=== PATIENT | female | born 1940 | race Caucasian/White ===

== ENCOUNTER 2021-10-07 13:25 | Inpatient (IN) | payer MEDICARE, OTHER ==
[~2021-10-07] VITALS: Ht 167.6 cm; Wt 127.0 kg
[~2021-10-07 13:25] MED LIST: LEVOTHYROXINE88 MCG PO; LISINOPRIL20 MG PO; VIBRAMYCIN TAB100 MG PO; VYTORIN 10-201 EACH PO
[2021-10-07 14:01] LABS: BASOPHILS % 0.3 % (0.0-1.0); EOSINOPHILS # (AUTO) 0.2 (0.0-0.4); EOSINOPHILS % 2.6 % (0.0-6.0); HEMATOCRIT 42.4 % (34.2-44.1); HEMOGLOBIN 13.7 g/dL (12.0-16.0); LYMPHOCYTES # (AUTO) 1.4 (1.0-3.2); LYMPHOCYTES % 15.4 % (18.0-39.1); MEAN CORPUSCULAR HEMOGLOBIN 30.6 pg (28-32); MEAN CORPUSCULAR HGB CONC 32.3 g/dL (31-35); MEAN CORPUSCULAR VOLUME 94.6 fL (81-99); MONOCYTES # (AUTO) 1.3 (0.2-0.8); MONOCYTES % 14.4 % (4.4-11.3); NEUTROPHILS # (AUTO) 5.9 (2.1-6.9); PLATELET COUNT 163 x10e3/uL (140-360); RED BLOOD COUNT 4.48 x10e6/uL (3.6-5.1); RED CELL DISTRIBUTION WIDTH 14.4 % (11.7-14.4)
[2021-10-07 14:15] LABS: ALBUMIN 3.7 g/dL (3.5-5.0); ALBUMIN/GLOBULIN RATIO 0.9 (0.8-2.0); ANION GAP 15.8 mmol/L (8-16); CALCIUM 8.9 mg/dL (8.4-10.2); CREATININE, SERUM 0.8 mg/dL (0.57-1.11); POTASSIUM 4.8 mmol/L (3.5-5.1)
[2021-10-07] MEDS: PIPERACILLIN/TAZOBACTAM 3.375 GM in SODIUM CHLORIDE 0.9% 50ML 50 ML IV SCH ×2 (14:15→21:55)
[2021-10-07] MEDS: Vancomycin IV 1 GM in SODIUM CHLORIDE 0.9% 250ML 250 ML IV SCH (14:15)
[2021-10-07] MEDS ORDERED: ONDANSETRON HCL INJ 2MG/ML 2ML 2 MG/ML VIAL IV PRN ×2 (16:15→18:30)
[2021-10-07 17:10] VITALS: BP 168/75
[2021-10-07 17:45] VITALS: BP 168/75
[2021-10-07] MEDS ORDERED: ALBUTEROL1.25 MG/3 NEB (18:21)
[2021-10-07] MEDS ORDERED: HYDROCODONE/APAP 5MG-325MG TAB PO PRN (18:30)
[2021-10-07] MEDS ORDERED: HYDRALAZINE HCL 20 MG/ML VIAL IV PRN (18:30)
[2021-10-07] MEDS ORDERED: ALBUTEROL SULF 0.083% NEB SOLN 3 ML NEB NEB PRN (18:45)
[2021-10-07] MEDS: Morphine 2mg Syringe 2 MG/ML SYR IV PRN ×2 (18:45→22:35)
[2021-10-07] MEDS ORDERED: AMLODIPINE BESYLATE 10 MG TAB PO ONE (18:45)
[2021-10-07 20:00] VITALS: BP 126/88
[2021-10-07 20:01] LABS: CLARITY,URINE CLEAR (CLEAR); COLOR,URINE YELLOW (YELLOW); LEUKOCYTE ESTERASE ,URINE NEGATIVE (NEGATIVE)
[2021-10-07 20:02] LABS: KETONES,URINE NEGATIVE (NEGATIVE); NITRITE,URINE NEGATIVE (NEGATIVE); PROTEIN,URINE DIPSTICK 1+ (NEGATIVE); URINE UROBILINOGEN 0.2 mg/dL (0.2 - 1)
[2021-10-07 20:05] LABS: BACTERIA,URINE MODERATE /HPF; EPITHELIAL CELLS,URINE MODERATE /LPF
[2021-10-07] MEDS: ACETAMINOPHEN 325 MG TAB PO PRN (23:40)
[2021-10-08] VITALS (7 sets, daily range): BP systolic 125–170; BP diastolic 46–84
[2021-10-08] MEDS: Vancomycin IV 1 GM in SODIUM CHLORIDE 0.9% 250ML 250 ML IV SCH ×2 (03:55→15:22)
[2021-10-08] MEDS: LEVOTHYROXINE SODIUM 88 MCG TAB PO SCH (05:23)
[2021-10-08] MEDS: PIPERACILLIN/TAZOBACTAM 3.375 GM in SODIUM CHLORIDE 0.9% 50ML 50 ML IV SCH ×3 (05:23→21:06)
[2021-10-08 05:42] LABS: BASOPHILS % 0.3 % (0.0-1.0); EOSINOPHILS # (AUTO) 0.3 (0.0-0.4); EOSINOPHILS % 2.2 % (0.0-6.0); HEMATOCRIT 41.5 % (34.2-44.1); LYMPHOCYTES # (AUTO) 2.7 (1.0-3.2); LYMPHOCYTES % 23.6 % (18.0-39.1); MEAN CORPUSCULAR HEMOGLOBIN 30.3 pg (28-32); MEAN CORPUSCULAR HGB CONC 31.3 g/dL (31-35); MEAN CORPUSCULAR VOLUME 96.7 fL (81-99); MONOCYTES # (AUTO) 1.3 (0.2-0.8); MONOCYTES % 10.8 % (4.4-11.3); NEUTROPHILS # (AUTO) 7.3 (2.1-6.9); NEUTROPHILS % 62.7 % (38.7-80.0); PLATELET COUNT 172 x10e3/uL (140-360); RED BLOOD COUNT 4.29 x10e6/uL (3.6-5.1); RED CELL DISTRIBUTION WIDTH 14.2 % (11.7-14.4)
[2021-10-08 06:06] LABS: CALCIUM 9.1 mg/dL (8.4-10.2); CREATININE, SERUM 0.82 mg/dL (0.57-1.11)
[2021-10-08] MEDS: ACETAMINOPHEN 325 MG TAB PO PRN ×2 (07:55→21:07)
[2021-10-08] MEDS ORDERED: BUPIVACAINE HCL 0.5% INJ 30 ML VIAL INJ ONE (10:24)
[2021-10-08] MEDS ORDERED: MUPIROCIN 2% OINT 22 GM TUBE ONE (10:24)
[2021-10-08] MEDS: AMLODIPINE BESYLATE 10 MG TAB PO SCH (12:30)
[2021-10-08] MEDS ORDERED: ONDANSETRON HCL INJ 2MG/ML 2ML 2 MG/ML VIAL ONE (13:10)
[2021-10-08] MEDS ORDERED: POVIDONE IODINE 0.05% 0.05 % ML PO ONE (13:10)
[2021-10-08] MEDS ORDERED: PROPOFOL IV EMULSION 10 MG/ML 20 ML VIAL ONE (13:10)
[2021-10-08] MEDS ORDERED: DEXAMETHASONE SOD PHOS INJ 4 MG/ML SDV ONE (13:10)
[2021-10-08] MEDS ORDERED: LIDOCAINE HCL 2% LOCAL INJ 5 ML SDV VIAL INJ ONE (13:10)
[2021-10-08] MEDS ORDERED: FENTANYL CITRATE/PF 100MCG/2 ML INJ ONE (13:21)
[2021-10-09] VITALS (8 sets, daily range): BP systolic 109–149; BP diastolic 64–92
[2021-10-09] MEDS: Vancomycin IV 1 GM in SODIUM CHLORIDE 0.9% 250ML 250 ML IV SCH ×2 (03:00→15:00)
[2021-10-09] MEDS: LEVOTHYROXINE SODIUM 88 MCG TAB PO SCH (05:25)
[2021-10-09] MEDS: PIPERACILLIN/TAZOBACTAM 3.375 GM in SODIUM CHLORIDE 0.9% 50ML 50 ML IV SCH ×2 (05:25→13:53)
[2021-10-09] MEDS: AMLODIPINE BESYLATE 10 MG TAB PO SCH (09:00)
[2021-10-10] VITALS: BP 133/67
[2021-10-10] MEDS: Vancomycin IV 1 GM in SODIUM CHLORIDE 0.9% 250ML 250 ML IV SCH (03:40)
[2021-10-10 04:00] VITALS: BP 121/50
[2021-10-10] MEDS: LEVOTHYROXINE SODIUM 88 MCG TAB PO SCH (06:10)
[2021-10-10 06:21] LABS: BASOPHILS % 0.4 % (0.0-1.0); EOSINOPHILS # (AUTO) 0.3 (0.0-0.4); EOSINOPHILS % 4.3 % (0.0-6.0); HEMATOCRIT 38.3 % (34.2-44.1); HEMOGLOBIN 12.1 g/dL (12.0-16.0); LYMPHOCYTES % 29.8 % (18.0-39.1); MEAN CORPUSCULAR HEMOGLOBIN 29.7 pg (28-32); MEAN CORPUSCULAR HGB CONC 31.6 g/dL (31-35); MEAN CORPUSCULAR VOLUME 93.9 fL (81-99); MONOCYTES # (AUTO) 0.7 (0.2-0.8); MONOCYTES % 9.7 % (4.4-11.3); NEUTROPHILS # (AUTO) 3.8 (2.1-6.9); NEUTROPHILS % 55.2 % (38.7-80.0); PLATELET COUNT 215 x10e3/uL (140-360); RED BLOOD COUNT 4.08 x10e6/uL (3.6-5.1)
[2021-10-10 07:58] VITALS: BP 125/59
[2021-10-10 08:26] VITALS: BP 125/59
[2021-10-10] MEDS: AMLODIPINE BESYLATE 10 MG TAB PO SCH (08:30)
[2021-10-10] MEDS ORDERED: MUPIROCIN 2% OINT 22 GM TUBE TOP SCH (09:00)
[2021-10-10 11:46] VITALS: BP 148/60
== END 2021-10-10 14:25 | disposition home or self-care (01) | DRG 513 ==
LOC: ER 14:28 → ERHOLD 16:12 → MED/SURG3 17:17
PROVIDERS: ADMIT Internal Medicine; ATTEND Internal Medicine
PROC: 0L980ZZ Drainage of Left Hand Tendon, Open Approach (ICD-10-PCS; 2021-10-08)
PROC: 0J9K0ZZ Drainage of Left Hand Subcutaneous Tissue and Fascia, Open Approach (ICD-10-PCS; principal; 2021-10-08 12:30)
DX: M65.142 Other infective (teno)synovitis, left hand (principal); Z68.42 Body mass index [BMI] 45.0-49.9, adult; L02.414 Cutaneous abscess of left upper limb; J44.9 Chronic obstructive pulmonary disease, unspecified; I10 Essential (primary) hypertension; I25.10 Atherosclerotic heart disease of native coronary artery without angina pectoris; E66.01 Morbid (severe) obesity due to excess calories; B95.62 Methicillin resistant Staphylococcus aureus infection as the cause of diseases classified elsewhere; I16.0 Hypertensive urgency; Z95.5 Presence of coronary angioplasty implant and graft; W19.XXXA Unspecified fall, initial encounter; Z20.822 Contact with and (suspected) exposure to COVID-19
CPT/HCPCS: 36415; 71045; 80048; 80053; 80202; 81001; 83605; 85025; 85610; 87040; 87071; 87075; 87186; 87205; 93005; 94799; 99284; J1100; J2001; J2270; J2405; J2543; J3010; J3370; J7050; U0002

== ENCOUNTER 2021-10-26 12:42 | Inpatient (IN) | payer MEDICARE, OTHER ==
[~2021-10-26] VITALS: Ht 167.6 cm; Wt 127.0 kg
[~2021-10-26 12:42] MED LIST changes: +ALBUTEROL1.25 MG/3 NEB
[2021-10-26] MEDS ORDERED: ASPIRIN 81 MG CHEW TAB PO STA (13:19)
[2021-10-26] MEDS ORDERED: SODIUM CHLORIDE 0.9% 500ML 500 ML IV ONE (13:30)
[2021-10-26 13:36] LABS: BASOPHILS % 0.4 % (0.0-1.0); EOSINOPHILS # (AUTO) 0.3 (0.0-0.4); EOSINOPHILS % 6.5 % (0.0-6.0); HEMATOCRIT 40.1 % (34.2-44.1); HEMOGLOBIN 12.9 g/dL (12.0-16.0); LYMPHOCYTES # (AUTO) 1.4 (1.0-3.2); LYMPHOCYTES % 30.8 % (18.0-39.1); MEAN CORPUSCULAR HEMOGLOBIN 30.1 pg (28-32); MEAN CORPUSCULAR HGB CONC 32.2 g/dL (31-35); MEAN CORPUSCULAR VOLUME 93.5 fL (81-99); MONOCYTES # (AUTO) 0.6 (0.2-0.8); MONOCYTES % 12.7 % (4.4-11.3); NEUTROPHILS # (AUTO) 2.2 (2.1-6.9); NEUTROPHILS % 49.4 % (38.7-80.0); PLATELET COUNT 192 x10e3/uL (140-360); RED BLOOD COUNT 4.29 x10e6/uL (3.6-5.1); RED CELL DISTRIBUTION WIDTH 13.9 % (11.7-14.4)
[2021-10-26 13:50] LABS: ALBUMIN 3.7 g/dL (3.5-5.0); ANION GAP 12.2 mmol/L (8-16); CALCIUM 9.2 mg/dL (8.4-10.2); CREATININE, SERUM 0.74 mg/dL (0.57-1.11); POTASSIUM 4.2 mmol/L (3.5-5.1)
[2021-10-26 14:09] LABS: CREATINE KINASE MB 2.8 ng/mL (0-5.0); THYROID STIMULATING HORMONE 4.529 uIU/mL (0.350-4.940)
[2021-10-26] MEDS ORDERED: ONDANSETRON HCL INJ 2MG/ML 2ML 2 MG/ML VIAL IV PRN (14:15)
[2021-10-26] MEDS ORDERED: FAMOTIDINE 20 MG/2 ML VIAL IV SCH (14:15)
[2021-10-26 16:12] LABS: INR 0.88; PROTHROMBIN TIME 12.6 seconds (11.9-14.5)
[2021-10-26 16:13] LABS: PARTIAL THROMBOPLASTIN TIME 23.5 seconds (23.8-35.5)
[2021-10-26 21:00] VITALS: BP 139/57
[2021-10-26 21:15] VITALS: BP 115/86
[2021-10-26] MEDS: Morphine 2mg Syringe 2 MG/ML SYR IV PRN (21:30)
[2021-10-26 21:50] LABS: CREATINE KINASE MB 3.7 ng/mL (0-5.0)
[2021-10-27] VITALS (9 sets, daily range): BP systolic 107–160; BP diastolic 55–86
[2021-10-27] MEDS: Morphine 2mg Syringe 2 MG/ML SYR IV PRN ×3 (00:30→13:36)
[2021-10-27] MEDS ORDERED: FUROSEMIDE40 MG PO (05:16)
[2021-10-27] MEDS ORDERED: AMLODIPINE BESY10 MG PO (05:16)
[2021-10-27] MEDS ORDERED: MUPIROCIN22 GM TOP (05:16)
[2021-10-27 05:50] LABS: BASOPHILS % 0.5 % (0.0-1.0); EOSINOPHILS # (AUTO) 0.3 (0.0-0.4); EOSINOPHILS % 7.3 % (0.0-6.0); HEMATOCRIT 38.6 % (34.2-44.1); HEMOGLOBIN 12.1 g/dL (12.0-16.0); LYMPHOCYTES # (AUTO) 1.5 (1.0-3.2); LYMPHOCYTES % 38.9 % (18.0-39.1); MEAN CORPUSCULAR HEMOGLOBIN 30.3 pg (28-32); MEAN CORPUSCULAR HGB CONC 31.3 g/dL (31-35); MEAN CORPUSCULAR VOLUME 96.7 fL (81-99); MONOCYTES # (AUTO) 0.5 (0.2-0.8); MONOCYTES % 13.4 % (4.4-11.3); NEUTROPHILS # (AUTO) 1.6 (2.1-6.9); NEUTROPHILS % 39.6 % (38.7-80.0); PLATELET COUNT 165 x10e3/uL (140-360); RED BLOOD COUNT 3.99 x10e6/uL (3.6-5.1); RED CELL DISTRIBUTION WIDTH 14.2 % (11.7-14.4)
[2021-10-27 06:14] LABS: CREATINE KINASE MB 3.6 ng/mL (0-5.0)
[2021-10-27 06:17] LABS: ALBUMIN 3.4 g/dL (3.5-5.0); ALBUMIN/GLOBULIN RATIO 0.8 (0.8-2.0); ANION GAP 14.1 mmol/L (8-16); CALCIUM 9.2 mg/dL (8.4-10.2); CHOL/HDL RATIO 3.2 (3.0-3.6); CREATININE, SERUM 0.91 mg/dL (0.57-1.11); POTASSIUM 4.1 mmol/L (3.5-5.1)
[2021-10-27] MEDS ORDERED: ALBUTEROL SULF 0.083% NEB SOLN 3 ML NEB INH PRN (08:30)
[2021-10-27] MEDS ORDERED: MUPIROCIN 2% OINT 22 GM TUBE TOP SCH (09:00)
[2021-10-27] MEDS: FUROSEMIDE 40 MG TAB PO SCH (09:00)
[2021-10-27] MEDS: AMLODIPINE BESYLATE 10 MG TAB PO SCH (09:00)
[2021-10-27] MEDS: LEVOTHYROXINE SODIUM 88 MCG TAB PO SCH (09:00)
[2021-10-27] MEDS: ASPIRIN 81 MG ENTERIC COATED PO SCH (09:58)
[2021-10-28] VITALS (9 sets, daily range): BP systolic 115–153; BP diastolic 61–83
[2021-10-28] MEDS: Morphine 2mg Syringe 2 MG/ML SYR IV PRN ×2 (01:00→20:33)
[2021-10-28] MEDS: LEVOTHYROXINE SODIUM 88 MCG TAB PO SCH (05:55)
[2021-10-28] MEDS: FUROSEMIDE 40 MG TAB PO SCH (09:00)
[2021-10-28] MEDS: MUPIROCIN 2% OINT 22 GM TUBE TOP SCH (09:00)
[2021-10-28] MEDS: ASPIRIN 81 MG ENTERIC COATED PO SCH (09:00)
[2021-10-28] MEDS: AMLODIPINE BESYLATE 10 MG TAB PO SCH (09:00)
[2021-10-28] MEDS ORDERED: SODIUM CHLORIDE 0.9% 250ML 250 ML ONE (09:06)
[2021-10-28] MEDS: Vancomycin IV 1 GM in SODIUM CHLORIDE 0.9% 250ML 250 ML IV SCH ×2 (09:42→20:33)
[2021-10-28] MEDS ORDERED: ACETAMINOPHEN 325 MG TAB PO PRN (11:45)
[2021-10-29] VITALS (7 sets, daily range): BP systolic 127–147; BP diastolic 60–98
[2021-10-29] MEDS: Morphine 2mg Syringe 2 MG/ML SYR IV PRN ×2 (00:20→21:00)
[2021-10-29] MEDS: LEVOTHYROXINE SODIUM 88 MCG TAB PO SCH (05:52)
[2021-10-29] MEDS: Vancomycin IV 1 GM in SODIUM CHLORIDE 0.9% 250ML 250 ML IV SCH ×2 (08:00→21:10)
[2021-10-29] MEDS: ASPIRIN 81 MG ENTERIC COATED PO SCH (09:00)
[2021-10-29] MEDS: MUPIROCIN 2% OINT 22 GM TUBE TOP SCH (09:00)
[2021-10-29] MEDS: AMLODIPINE BESYLATE 10 MG TAB PO SCH (09:00)
[2021-10-29] MEDS: FUROSEMIDE 40 MG TAB PO SCH (09:00)
[2021-10-29] MEDS ORDERED: REGADENOSON 0.4 MG/5 ML SYR IV ONE (10:16)
[2021-10-29] MEDS ORDERED: ONDANSETRON HCL 4 MG ORAL DISINTEGRATING TAB PO PRN (14:15)
[2021-10-30] VITALS (8 sets, daily range): BP systolic 132–160; BP diastolic 48–81
[2021-10-30] MEDS: LEVOTHYROXINE SODIUM 88 MCG TAB PO SCH (05:33)
[2021-10-30] MEDS ORDERED: VERAPAMIL HCL 2.5 MG/ML 2 ML VIAL ONE (07:17)
[2021-10-30] MEDS ORDERED: MIDAZOLAM HCL 2 MG/2 ML VIAL ONE ×2 (07:17→14:49)
[2021-10-30] MEDS ORDERED: HEPARIN SOD (PORCINE) 1000 UNIT/ML 30ML ONE (07:17)
[2021-10-30] MEDS ORDERED: IOPAMIDOL 370 MG/ML 200 ML INFUS..BTL INJ ONE (07:18)
[2021-10-30] MEDS ORDERED: LIDOCAINE HCL 2% LOCAL 20 ML VIAL ONE (07:18)
[2021-10-30] MEDS ORDERED: SODIUM CHLORIDE 0.9% 1000ML 1,000 ML ONE (07:18)
[2021-10-30] MEDS ORDERED: NITROGLYCERIN/D5W 200 MCG/ML 250 ML ONE (07:18)
[2021-10-30] MEDS ORDERED: FENTANYL CITRATE/PF 100MCG/2 ML INJ ONE (07:18)
[2021-10-30] MEDS ORDERED: HEPARIN SOD/SOD CHLORIDE 2,000 ML ONE (07:18)
[2021-10-30] MEDS: FUROSEMIDE 40 MG TAB PO SCH (09:00)
[2021-10-30] MEDS: ASPIRIN 81 MG ENTERIC COATED PO SCH (09:00)
[2021-10-30] MEDS: Vancomycin IV 1 GM in SODIUM CHLORIDE 0.9% 250ML 250 ML IV SCH (09:00)
[2021-10-30] MEDS: MUPIROCIN 2% OINT 22 GM TUBE TOP SCH ×2 (09:22→09:38)
[2021-10-30] MEDS: AMLODIPINE BESYLATE 10 MG TAB PO SCH (09:30)
[2021-10-30] MEDS: Morphine 2mg Syringe 2 MG/ML SYR IV PRN ×2 (18:14→22:56)
[2021-10-30] MEDS: Vancomycin IV 1.25 GM in SODIUM CHLORIDE 0.9% 250ML 250 ML IV SCH (20:48)
[2021-10-31 00:28] VITALS: BP 139/74
[2021-10-31] MEDS: Morphine 2mg Syringe 2 MG/ML SYR IV PRN (04:56)
[2021-10-31 05:00] VITALS: BP 143/60
[2021-10-31] MEDS: LEVOTHYROXINE SODIUM 88 MCG TAB PO SCH (05:45)
[2021-10-31 08:33] VITALS: BP 141/48
[2021-10-31 09:00] VITALS: BP 141/48
[2021-10-31] MEDS ORDERED: CLOPIDOGREL BISULFATE 75 MG TAB PO SCH (09:00)
[2021-10-31] MEDS: MUPIROCIN 2% OINT 22 GM TUBE TOP SCH (09:26)
[2021-10-31] MEDS: Vancomycin IV 1.25 GM in SODIUM CHLORIDE 0.9% 250ML 250 ML IV SCH (09:26)
[2021-10-31] MEDS: ASPIRIN 81 MG ENTERIC COATED PO SCH (09:26)
[2021-10-31] MEDS: AMLODIPINE BESYLATE 10 MG TAB PO SCH (09:26)
[2021-10-31] MEDS: FUROSEMIDE 40 MG TAB PO SCH (09:26)
[2021-10-31 11:57] VITALS: BP 167/67
[2021-10-31] MEDS ORDERED: LIPITOR20 MG PO (13:57)
[2021-10-31] MEDS ORDERED: ECOTRIN81 MG PO (13:58)
[2021-10-31] MEDS ORDERED: PLAVIX75 MG PO (13:58)
[2021-10-31] MEDS ORDERED: ATORVASTATIN 40 MG TAB PO SCH (21:00)
== END 2021-10-31 14:57 | disposition home or self-care (01) | DRG 287 ==
LOC: ER 13:19 → ERHOLD 15:18 → MED/SURG 20:10 → OBSVTOIN 10-27 08:53
PROVIDERS: ADMIT Internal Medicine; ATTEND Internal Medicine
PROC: 4A023N7 Measurement of Cardiac Sampling and Pressure, Left Heart, Percutaneous Approach (ICD-10-PCS; principal; 2021-10-30)
PROC: B2111ZZ Fluoroscopy of Multiple Coronary Arteries using Low Osmolar Contrast (ICD-10-PCS; 2021-10-30)
PROC: B2151ZZ Fluoroscopy of Left Heart using Low Osmolar Contrast (ICD-10-PCS; 2021-10-30)
DX: I47.2 Ventricular tachycardia (principal); Z68.42 Body mass index [BMI] 45.0-49.9, adult; L03.114 Cellulitis of left upper limb; T82.857A Stenosis of other cardiac prosthetic devices, implants and grafts, initial encounter; I42.9 Cardiomyopathy, unspecified; I25.10 Atherosclerotic heart disease of native coronary artery without angina pectoris; I11.9 Hypertensive heart disease without heart failure; I49.5 Sick sinus syndrome; R00.2 Palpitations; E78.5 Hyperlipidemia, unspecified; Z95.5 Presence of coronary angioplasty implant and graft; Z82.49 Family history of ischemic heart disease and other diseases of the circulatory system; B95.62 Methicillin resistant Staphylococcus aureus infection as the cause of diseases classified elsewhere; E66.01 Morbid (severe) obesity due to excess calories; Z20.822 Contact with and (suspected) exposure to COVID-19
CPT/HCPCS: 36415; 71045; 78452; 80053; 80061; 80202; 82550; 82553; 83735; 83880; 84443; 84484; 85025; 85610; 85730; 93005; 93017; 93306; 93458; 93880; 99152; 99153; 99251; 99284; A9502; C1769; C1887; G0378; J1644; J2001; J2250; J2270; J3010; J3370; J7030; J7040; J7050; Q9967; U0002

== ENCOUNTER 2023-08-02 13:19 | Inpatient (IN) | payer MEDICARE, OTHER ==
[~2023-08-02] VITALS: Ht 167.6 cm; Wt 127.0 kg
[~2023-08-02 13:19] MED LIST changes: +AMLODIPINE BESY10 MG PO; +ECOTRIN81 MG PO; +FUROSEMIDE40 MG PO; +LIPITOR20 MG PO; +MUPIROCIN22 GM TOP; +PLAVIX75 MG PO
[2023-08-02 13:45] LABS: BASOPHILS % 0.3 % (0.0-1.0); EOSINOPHILS # (AUTO) 0.1 (0.0-0.4); HEMATOCRIT 24.9 % (34.2-44.1); HEMOGLOBIN 8.3 g/dL (12.0-16.0); LYMPHOCYTES # (AUTO) 1.1 (1.0-3.2); LYMPHOCYTES % 17.2 % (18.0-39.1); MEAN CORPUSCULAR HEMOGLOBIN 30.7 pg (28-32); MEAN CORPUSCULAR HGB CONC 33.3 g/dL (31-35); MEAN CORPUSCULAR VOLUME 92.2 fL (81-99); MONOCYTES # (AUTO) 0.6 (0.2-0.8); MONOCYTES % 8.8 % (4.4-11.3); NEUTROPHILS # (AUTO) 4.7 (2.1-6.9); NEUTROPHILS % 71.2 % (38.7-80.0); PLATELET COUNT 144 x10e3/uL (140-360); WHITE BLOOD COUNT 6.61 x10e3/uL (4.8-10.8)
[2023-08-02] MEDS ORDERED: LACTATED RINGER'S 500 ML INJ ONE (13:45)
[2023-08-02 15:13] LABS: CLARITY,URINE SL CLOUDY (CLEAR); COLOR,URINE YELLOW (YELLOW); KETONES,URINE NEGATIVE (NEGATIVE); LEUKOCYTE ESTERASE ,URINE NEGATIVE (NEGATIVE); NITRITE,URINE NEGATIVE (NEGATIVE); PROTEIN,URINE DIPSTICK NEGATIVE (NEGATIVE); URINE UROBILINOGEN 0.2 mg/dL (0.2 - 1)
[2023-08-02 15:25] LABS: BACTERIA,URINE MODERATE /HPF; WBC,URINE (MAN) 0-5 /HPF (0-5)
[2023-08-02 15:26] LABS: EPITHELIAL CELLS,URINE FEW /LPF
[2023-08-02 15:47] LABS: PROTHROMBIN TIME 13.8 seconds (11.9-14.5)
[2023-08-02 15:49] LABS: PARTIAL THROMBOPLASTIN TIME 19.7 seconds (23.8-35.5)
[2023-08-02 16:00] LABS: ALANINE AMINOTRANSFERASE 11 IU/L (0-55); ALBUMIN 3.2 g/dL (3.5-5.0); ALBUMIN/GLOBULIN RATIO 1.3 (0.8-2.0); ALKALINE PHOSPHATASE 49 IU/L (40-150); ANION GAP 11.5 mmol/L (8-16); BLOOD UREA NITROGEN 51 mg/dL (7-26); BUN/CREATININE RATIO 65 (6-25); CALCIUM 8.6 mg/dL (8.4-10.2); CARBON DIOXIDE 21 mmol/L (22-29); CHLORIDE 109 mmol/L (98-107); CREATINE KINASE 70 IU/L (29-168); CREATININE, SERUM 0.79 mg/dL (0.57-1.11); GLUCOSE 105 mg/dL (74-118); POTASSIUM 4.5 mmol/L (3.5-5.1); SODIUM 137 mmol/L (136-145)
[2023-08-02] MEDS ORDERED: SODIUM CHLORIDE 0.9% 100 ML ONE (16:51)
[2023-08-02] MEDS ORDERED: IOPAMIDOL 370 MG/ML 100 ML INFUS..BTL INJ ONE (16:51)
[2023-08-02 19:54] LABS: FERRITIN 101.8 ng/mL (4.63-204.00)
[2023-08-02 20:00] VITALS: BP 126/107; PULSE 60; RESP 18; TEMP 98.1; O2SAT 95
[2023-08-02 20:06] LABS: HEMOGLOBIN 7.3 g/dL (12.0-16.0)
[2023-08-02 21:00] VITALS: BP 126/107; PULSE 60; RESP 18; TEMP 98.1; O2SAT 95
[2023-08-02] MEDS ORDERED: HYDRALAZINE HCL10 MG PO (21:02)
[2023-08-02] MEDS ORDERED: LOSARTAN POTASS25 MG PO (21:02)
[2023-08-02] MEDS ORDERED: CRESTOR20 MG PO (21:02)
[2023-08-02] MEDS ORDERED: BRILINTA90 MG PO (21:06)
[2023-08-02 21:15] VITALS: BP 126/107; PULSE 60; RESP 18; TEMP 98.1; O2SAT 95
[2023-08-02] MEDS: ATORVASTATIN 40 MG TAB PO SCH (22:07)
[2023-08-02] MEDS: TRAMADOL HCL 50 MG TAB PO PRN (22:09)
[2023-08-03] VITALS (9 sets, daily range): BP systolic 98–138; BP diastolic 43–75; PULSE 50–78; RESP 16–21; TEMP 98.3–99.6; O2SAT 94–100
[2023-08-03] MEDS ORDERED: SODIUM CHLORIDE 0.9% 1000ML 500 ML IV ONE (00:30)
[2023-08-03] MEDS ORDERED: ONDANSETRON HCL INJ 2MG/ML 2ML 2 MG/ML VIAL IV PRN (00:30)
[2023-08-03 05:49] LABS: HEMOGLOBIN 6.6 g/dL (12.0-16.0)
[2023-08-03 05:58] LABS: HEMATOCRIT 19.7 % (34.2-44.1)
[2023-08-03] MEDS: LEVOTHYROXINE SODIUM 88 MCG TAB PO SCH (06:07)
[2023-08-03 07:30] LABS: ANION GAP 11.8 mmol/L (8-16); CALCIUM 8.2 mg/dL (8.4-10.2); CREATININE, SERUM 1.57 mg/dL (0.57-1.11); POTASSIUM 3.8 mmol/L (3.5-5.1)
[2023-08-03] MEDS ORDERED: CLOPIDOGREL BISULFATE 75 MG TAB PO SCH (09:00)
[2023-08-03] MEDS ORDERED: ASPIRIN 81 MG ENTERIC COATED PO SCH (09:00)
[2023-08-03] MEDS: AMLODIPINE BESYLATE 5 MG TAB PO SCH (09:17)
[2023-08-03] MEDS: TRAMADOL HCL 50 MG TAB PO PRN ×2 (09:41→16:42)
[2023-08-03] MEDS ORDERED: SODIUM CHLORIDE 0.9% 250ML 250 ML IV ONE (10:30)
[2023-08-03] MEDS ORDERED: CYANOCOBALAMIN INJ 1,000 MCG/ML VIAL IM SCH (10:30)
[2023-08-03] MEDS ORDERED: ONDANSETRON HCL 4 MG ORAL DISINTEGRATING TAB PO PRN (10:45)
[2023-08-03 14:00] LABS: HEMATOCRIT 20.4 % (34.2-44.1); HEMOGLOBIN 6.7 g/dL (12.0-16.0)
[2023-08-03] MEDS: ACETAMINOPHEN 325 MG TAB PO PRN ×2 (14:52→19:10)
[2023-08-03] MEDS ORDERED: SODIUM CHLORIDE 0.9% 250ML 250 ML ONE (15:10)
[2023-08-03] MEDS: ATORVASTATIN 40 MG TAB PO SCH (21:22)
[2023-08-04] VITALS (7 sets, daily range): BP systolic 116–136; BP diastolic 44–55; PULSE 52–64; RESP 16–19; TEMP 98.2–99.1; O2SAT 95–97
[2023-08-04] MEDS: LEVOTHYROXINE SODIUM 88 MCG TAB PO SCH (05:52)
[2023-08-04 06:21] LABS: BASOPHILS % 0.3 % (0.0-1.0); EOSINOPHILS # (AUTO) 0.3 (0.0-0.4); EOSINOPHILS % 5.6 % (0.0-6.0); HEMATOCRIT 27.3 % (34.2-44.1); HEMOGLOBIN 9.3 g/dL (12.0-16.0); LYMPHOCYTES # (AUTO) 1.5 (1.0-3.2); LYMPHOCYTES % 26.1 % (18.0-39.1); MEAN CORPUSCULAR HEMOGLOBIN 31.3 pg (28-32); MEAN CORPUSCULAR HGB CONC 34.1 g/dL (31-35); MEAN CORPUSCULAR VOLUME 91.9 fL (81-99); MONOCYTES # (AUTO) 0.7 (0.2-0.8); MONOCYTES % 11.2 % (4.4-11.3); NEUTROPHILS # (AUTO) 3.3 (2.1-6.9); NEUTROPHILS % 56.1 % (38.7-80.0); PLATELET COUNT 108 x10e3/uL (140-360); RED BLOOD COUNT 2.97 x10e6/uL (3.6-5.1); RED CELL DISTRIBUTION WIDTH 16.2 % (11.7-14.4); WHITE BLOOD COUNT 5.87 x10e3/uL (4.8-10.8)
[2023-08-04 06:57] LABS: ANION GAP 10.2 mmol/L (8-16); CALCIUM 8.4 mg/dL (8.4-10.2); CREATININE, SERUM 0.74 mg/dL (0.57-1.11); POTASSIUM 4.2 mmol/L (3.5-5.1)
[2023-08-04] MEDS: AMLODIPINE BESYLATE 5 MG TAB PO SCH (09:00)
[2023-08-04] MEDS ORDERED: CYANOCOBALAMIN INJ 1,000 MCG/ML VIAL IM SCH (09:00)
[2023-08-04 12:51] LABS: HEMATOCRIT 26.3 % (34.2-44.1); HEMOGLOBIN 8.9 g/dL (12.0-16.0)
[2023-08-04] MEDS: ACETAMINOPHEN 325 MG TAB PO PRN (17:16)
[2023-08-04 18:32] LABS: HEMATOCRIT 25.7 % (34.2-44.1); HEMOGLOBIN 8.5 g/dL (12.0-16.0)
[2023-08-04] MEDS: ATORVASTATIN 40 MG TAB PO SCH (21:49)
[2023-08-05] VITALS (9 sets, daily range): BP systolic 117–151; BP diastolic 45–54; PULSE 55–67; RESP 17–19; TEMP 97.9–98.1; O2SAT 96–100
[2023-08-05] MEDS: LEVOTHYROXINE SODIUM 88 MCG TAB PO SCH (04:52)
[2023-08-05 05:19] LABS: HEMATOCRIT 27.6 % (34.2-44.1); HEMOGLOBIN 9.2 g/dL (12.0-16.0)
[2023-08-05] MEDS: TRAMADOL HCL 50 MG TAB PO PRN (06:28)
[2023-08-05] MEDS: AMLODIPINE BESYLATE 5 MG TAB PO SCH (09:00)
[2023-08-05 13:08] LABS: HEMATOCRIT 28.8 % (34.2-44.1); HEMOGLOBIN 9.7 g/dL (12.0-16.0)
[2023-08-05] MEDS: ATORVASTATIN 40 MG TAB PO SCH (21:12)
[2023-08-05 23:42] LABS: HEMATOCRIT 27.7 % (34.2-44.1); HEMOGLOBIN 9.1 g/dL (12.0-16.0)
[2023-08-06] VITALS (9 sets, daily range): BP systolic 121–138; BP diastolic 34–62; PULSE 50–63; RESP 15–18; TEMP 97.6–98.3; O2SAT 97–98
[2023-08-06] MEDS: ACETAMINOPHEN 325 MG TAB PO PRN ×2 (04:56→23:14)
[2023-08-06] MEDS: LEVOTHYROXINE SODIUM 88 MCG TAB PO SCH (05:50)
[2023-08-06] MEDS: AMLODIPINE BESYLATE 5 MG TAB PO SCH (08:52)
[2023-08-06] MEDS: ATORVASTATIN 40 MG TAB PO SCH (20:32)
[2023-08-07] VITALS (8 sets, daily range): BP systolic 118–137; BP diastolic 42–66; PULSE 49–65; RESP 18–20; TEMP 98–98.6; O2SAT 96–99
[2023-08-07 05:04] LABS: BASOPHILS % 0.5 % (0.0-1.0); EOSINOPHILS # (AUTO) 0.3 (0.0-0.4); EOSINOPHILS % 6.6 % (0.0-6.0); HEMATOCRIT 27.4 % (34.2-44.1); HEMOGLOBIN 9.1 g/dL (12.0-16.0); LYMPHOCYTES # (AUTO) 1.6 (1.0-3.2); LYMPHOCYTES % 37.4 % (18.0-39.1); MEAN CORPUSCULAR HEMOGLOBIN 31.1 pg (28-32); MEAN CORPUSCULAR HGB CONC 33.2 g/dL (31-35); MEAN CORPUSCULAR VOLUME 93.5 fL (81-99); MONOCYTES # (AUTO) 0.6 (0.2-0.8); MONOCYTES % 14.8 % (4.4-11.3); NEUTROPHILS # (AUTO) 1.7 (2.1-6.9); NEUTROPHILS % 40.5 % (38.7-80.0); PLATELET COUNT 153 x10e3/uL (140-360); RED BLOOD COUNT 2.93 x10e6/uL (3.6-5.1); RED CELL DISTRIBUTION WIDTH 15.7 % (11.7-14.4); WHITE BLOOD COUNT 4.25 x10e3/uL (4.8-10.8)
[2023-08-07 05:32] LABS: ANION GAP 11.7 mmol/L (8-16); CREATININE, SERUM 0.7 mg/dL (0.57-1.11); POTASSIUM 3.7 mmol/L (3.5-5.1)
[2023-08-07] MEDS: LEVOTHYROXINE SODIUM 88 MCG TAB PO SCH (06:30)
[2023-08-07] MEDS: AMLODIPINE BESYLATE 5 MG TAB PO SCH (08:38)
[2023-08-07] MEDS: ATORVASTATIN 40 MG TAB PO SCH (21:47)
[2023-08-08] MEDS ORDERED: CYANOCOBALAMIN INJ 1,000 MCG/ML VIAL IM ONE (00:15)
[2023-08-08 01:36] VITALS: BP 151/74; PULSE 59; RESP 18; TEMP 98.2; O2SAT 100
[2023-08-08] MEDS: ACETAMINOPHEN 325 MG TAB PO PRN (03:31)
[2023-08-08 04:18] VITALS: BP 139/47; PULSE 54; RESP 18; TEMP 97.9; O2SAT 98
[2023-08-08 05:40] LABS: BASOPHILS % 0.2 % (0.0-1.0); EOSINOPHILS # (AUTO) 0.3 (0.0-0.4); EOSINOPHILS % 6.6 % (0.0-6.0); HEMOGLOBIN 9.4 g/dL (12.0-16.0); LYMPHOCYTES # (AUTO) 1.4 (1.0-3.2); LYMPHOCYTES % 30.8 % (18.0-39.1); MEAN CORPUSCULAR HEMOGLOBIN 30.8 pg (28-32); MEAN CORPUSCULAR HGB CONC 32.4 g/dL (31-35); MEAN CORPUSCULAR VOLUME 95.1 fL (81-99); MONOCYTES # (AUTO) 0.7 (0.2-0.8); MONOCYTES % 15.4 % (4.4-11.3); NEUTROPHILS # (AUTO) 2.2 (2.1-6.9); NEUTROPHILS % 46.6 % (38.7-80.0); PLATELET COUNT 165 x10e3/uL (140-360); RED BLOOD COUNT 3.05 x10e6/uL (3.6-5.1); RED CELL DISTRIBUTION WIDTH 15.9 % (11.7-14.4); WHITE BLOOD COUNT 4.67 x10e3/uL (4.8-10.8)
[2023-08-08] MEDS: LEVOTHYROXINE SODIUM 88 MCG TAB PO SCH (06:00)
[2023-08-08 06:04] LABS: ANION GAP 10.7 mmol/L (8-16); CALCIUM 8.9 mg/dL (8.4-10.2); CREATININE, SERUM 0.73 mg/dL (0.57-1.11); PHOSPHORUS 3.6 MG/DL (2.3-4.7); POTASSIUM 3.7 mmol/L (3.5-5.1)
[2023-08-08 08:28] VITALS: BP 157/57; PULSE 93; RESP 19; TEMP 98.5; O2SAT 98
[2023-08-08] MEDS ORDERED: CYANOCOBALAMIN INJ 1,000 MCG/ML VIAL IM SCH (09:00)
[2023-08-08 09:05] VITALS: BP 157/57; PULSE 52; RESP 19; TEMP 98.5; O2SAT 98
[2023-08-08] MEDS ORDERED: SUCRALFATE1 GM PO (09:11)
[2023-08-08] MEDS ORDERED: VITAMIN B-121000 MC1 PO (09:11)
[2023-08-08] MEDS ORDERED: PANTOPRAZOLE SO40 MG PO (09:11)
[2023-08-08] MEDS: AMLODIPINE BESYLATE 5 MG TAB PO SCH (09:15)
[2023-08-08 12:00] VITALS: BP 133/61; PULSE 55; RESP 18; TEMP 97.8; O2SAT 98
[2023-08-08] MEDS ORDERED: LOSARTAN POTASSIUM 25 MG TAB PO SCH (12:30)
[2023-08-08 16:53] VITALS: BP 158/59; PULSE 46; RESP 18; TEMP 97.9; O2SAT 94
[2023-08-09] MEDS ORDERED: MECLIZINE HCL12.5 MG PO (00:51)
== END 2023-08-08 18:53 | disposition home or self-care (01) | DRG 378 ==
LOC: ER 13:30 → ERHOLD 17:34 → MED/SURG3 19:53
PROVIDERS: ADMIT Internal Medicine; ATTEND Internal Medicine
PROC: 30243P1 Transfusion of Nonautologous Frozen Red Cells into Central Vein, Percutaneous Approach (ICD-10-PCS; 2023-08-03)
PROC: 0DB78ZX Excision of Stomach, Pylorus, Via Natural or Artificial Opening Endoscopic, Diagnostic (ICD-10-PCS; principal; 2023-08-05 15:37)
DX: K92.2 Gastrointestinal hemorrhage, unspecified (principal); D62 Acute posthemorrhagic anemia; N39.0 Urinary tract infection, site not specified; N17.9 Acute kidney failure, unspecified; I50.22 Chronic systolic (congestive) heart failure; E46 Unspecified protein-calorie malnutrition; Z68.42 Body mass index [BMI] 45.0-49.9, adult; E87.1 Hypo-osmolality and hyponatremia; K29.60 Other gastritis without bleeding; T82.855D Stenosis of coronary artery stent, subsequent encounter; Y71.8 Miscellaneous cardiovascular devices associated with adverse incidents, not elsewhere classified; K25.9 Gastric ulcer, unspecified as acute or chronic, without hemorrhage or perforation; I95.1 Orthostatic hypotension; J44.9 Chronic obstructive pulmonary disease, unspecified; I11.0 Hypertensive heart disease with heart failure; I25.10 Atherosclerotic heart disease of native coronary artery without angina pectoris; K20.80 Other esophagitis without bleeding; D51.9 Vitamin B12 deficiency anemia, unspecified; R42 Dizziness and giddiness; E66.9 Obesity, unspecified; R55 Syncope and collapse; E03.9 Hypothyroidism, unspecified; Z79.02 Long term (current) use of antithrombotics/antiplatelets; Z95.5 Presence of coronary angioplasty implant and graft; Z86.14 Personal history of Methicillin resistant Staphylococcus aureus infection; Z86.73 Personal history of transient ischemic attack (TIA), and cerebral infarction without residual deficits; Z20.822 Contact with and (suspected) exposure to COVID-19
CPT/HCPCS: 0223U; 36415; 43239; 70450; 71045; 74174; 80048; 80053; 81001; 82550; 82607; 82728; 83540; 83605; 83735; 83880; 84100; 84466; 84484; 85014; 85018; 85025; 85610; 85730; 86850; 86900; 86920; 87086; 88305; 88342; 93005; 93306; 99284; J0696; J3420; J7030; J7050; P9016; Q9967; U0002

== ENCOUNTER 2024-07-15 13:28 | Emergency (ER) | payer MEDICARE, OTHER ==
[~2024-07-15] VITALS: Ht 167.6 cm; Wt 127.0 kg
[~2024-07-15 13:28] MED LIST changes: +BRILINTA90 MG PO; +CRESTOR20 MG PO; +HYDRALAZINE HCL10 MG PO; +LOSARTAN POTASS25 MG PO; +MECLIZINE HCL12.5 MG PO; +PANTOPRAZOLE SO40 MG PO; +SUCRALFATE1 GM PO; +VITAMIN B-121000 MC1 PO
[2024-07-15 14:04] VITALS: PULSE 69; RESP 24; TEMP 97.4
[2024-07-15] MEDS: ALBUTEROL/IPRATROPIUM 3 ML NEB NEB ONE (14:17)
[2024-07-15 14:21] LABS: BASOPHILS % 0.4 % (0.0-1.0); EOSINOPHILS # (AUTO) 0.3 (0.0-0.4); EOSINOPHILS % 5.2 % (0.0-6.0); HEMATOCRIT 43.2 % (34.2-44.1); HEMOGLOBIN 13.3 g/dL (12.0-16.0); LYMPHOCYTES # (AUTO) 1.6 (1.0-3.2); LYMPHOCYTES % 28.9 % (18.0-39.1); MEAN CORPUSCULAR HEMOGLOBIN 30.6 pg (28-32); MEAN CORPUSCULAR HGB CONC 30.8 g/dL (31-35); MEAN CORPUSCULAR VOLUME 99.3 fL (81-99); MONOCYTES # (AUTO) 0.5 (0.2-0.8); MONOCYTES % 8.5 % (4.4-11.3); NEUTROPHILS # (AUTO) 3.1 (2.1-6.9); NEUTROPHILS % 56.6 % (38.7-80.0); PLATELET COUNT 176 x10e3/uL (140-360); RED BLOOD COUNT 4.35 x10e6/uL (3.6-5.1); RED CELL DISTRIBUTION WIDTH 14.1 % (11.7-14.4); WHITE BLOOD COUNT 5.43 x10e3/uL (4.8-10.8)
[2024-07-15 14:40] LABS: ALANINE AMINOTRANSFERASE < 6 IU/L (0-55); ALBUMIN 3.9 g/dL (3.5-5.0); ALBUMIN/GLOBULIN RATIO 1.2 (0.8-2.0); ALKALINE PHOSPHATASE 67 IU/L (40-150); BILIRUBIN,TOTAL 0.5 mg/dL (0.2-1.2); BLOOD UREA NITROGEN 19 mg/dL (7-26); BUN/CREATININE RATIO 19 (6-25); CARBON DIOXIDE 22 mmol/L (22-29); CHLORIDE 107 mmol/L (98-107); CREATINE KINASE 77 IU/L (29-168); EST GLOMERULAR FILTRATION RATE 56 ML/MIN (>=60); GLUCOSE 88 mg/dL (74-118); SODIUM 140 mmol/L (136-145); TOTAL PROTEIN 7.2 g/dL (6.5-8.1)
[2024-07-15 14:46] LABS: TROPONIN I 0.055 ng/mL (0-0.300)
[2024-07-15 14:57] LABS: INFLUENZAE A&B ANTIGEN (RAPID) NEGATIVE (NEGATIVE); RESPIRATORY SYNC. VIRUS NEGATIVE (NEGATIVE)
[2024-07-15 15:03] LABS: CALCIUM 9.7 mg/dL (8.4-10.2)
[2024-07-15] MEDS ORDERED: MEDROL4 M2 PO (15:46)
[2024-07-15] MEDS ORDERED: AZITHROMYCIN250 MG PO (15:46)
[2024-07-15 16:54] VITALS: BP 129/71; PULSE 71; RESP 16; TEMP 98.3; O2SAT 100
== END 2024-07-15 16:48 | disposition home or self-care (01) ==
LOC: ER 13:39
DX: R06.00 Dyspnea, unspecified (principal); J44.9 Chronic obstructive pulmonary disease, unspecified; I50.9 Heart failure, unspecified; J40 Bronchitis, not specified as acute or chronic; E78.5 Hyperlipidemia, unspecified; E03.9 Hypothyroidism, unspecified; Z11.52 Encounter for screening for COVID-19; R94.31 Abnormal electrocardiogram [ECG] [EKG]; Z86.73 Personal history of transient ischemic attack (TIA), and cerebral infarction without residual deficits
CPT/HCPCS: 36415; 71045; 80053; 82550; 83735; 83880; 84484; 85025; 87400; 87420; 93005; 99284; U0002

== ENCOUNTER 2024-11-19 16:10 | Inpatient (IN) | payer MEDICARE ==
[~2024-11-19] VITALS: Ht 152.4 cm; Wt 96.6 kg
[~2024-11-19 16:10] MED LIST changes: +AZITHROMYCIN250 MG PO; +MEDROL4 M2 PO
[2024-11-19 16:57] LABS: BASOPHILS % 0.4 % (0.0-1.0); EOSINOPHILS # (AUTO) 0.4 (0.0-0.4); EOSINOPHILS % 9.1 % (0.0-6.0); HEMOGLOBIN 12.7 g/dL (12.0-16.0); LYMPHOCYTES # (AUTO) 1.4 (1.0-3.2); LYMPHOCYTES % 30.2 % (18.0-39.1); MEAN CORPUSCULAR HEMOGLOBIN 30.8 pg (28-32); MEAN CORPUSCULAR HGB CONC 32.6 g/dL (31-35); MEAN CORPUSCULAR VOLUME 94.7 fL (81-99); MONOCYTES # (AUTO) 0.6 (0.2-0.8); MONOCYTES % 12.6 % (4.4-11.3); NEUTROPHILS # (AUTO) 2.2 (2.1-6.9); NEUTROPHILS % 47.5 % (38.7-80.0); PLATELET COUNT 171 x10e3/uL (140-360); RED BLOOD COUNT 4.12 x10e6/uL (3.6-5.1)
[2024-11-19 17:21] LABS: ALBUMIN 4.1 g/dL (3.5-5.0); ALBUMIN/GLOBULIN RATIO 1.2 (0.8-2.0); ANION GAP 13.4 mmol/L (8-16); BILIRUBIN,TOTAL 0.6 mg/dL (0.2-1.2); CALCIUM 9.5 mg/dL (8.4-10.2); CREATININE, SERUM 0.89 mg/dL (0.57-1.11); POTASSIUM 4.4 mmol/L (3.5-5.1); TOTAL PROTEIN 7.6 g/dL (6.5-8.1)
[2024-11-19 17:27] LABS: TROPONIN I 0.03 ng/mL (0-0.300)
[2024-11-19] MEDS: GLUCAGON FOR INJ 1 MG VIAL IV ONE (18:12)
[2024-11-19] MEDS: CALCIUM GLUC 1 G/50 ML NACL 50 ML IV ONE (18:12)
[2024-11-19 19:40] VITALS: PULSE 52; RESP 18; TEMP 97.9
[2024-11-19 20:45] VITALS: BP 132/58; PULSE 81; RESP 19; TEMP 97.7; O2SAT 98
[2024-11-19 22:00] VITALS: BP 132/58; PULSE 81; RESP 19; TEMP 97.7; O2SAT 98
[2024-11-20] VITALS (8 sets, daily range): BP systolic 101–131; BP diastolic 57–96; PULSE 53–106; RESP 18–21; TEMP 98–99; O2SAT 92–100
[2024-11-20 06:08] LABS: BASOPHILS % 0.4 % (0.0-1.0); EOSINOPHILS # (AUTO) 0.4 (0.0-0.4); EOSINOPHILS % 8.9 % (0.0-6.0); HEMATOCRIT 36.7 % (34.2-44.1); HEMOGLOBIN 11.9 g/dL (12.0-16.0); LYMPHOCYTES # (AUTO) 1.4 (1.0-3.2); LYMPHOCYTES % 30.3 % (18.0-39.1); MEAN CORPUSCULAR HEMOGLOBIN 31.1 pg (28-32); MEAN CORPUSCULAR HGB CONC 32.4 g/dL (31-35); MEAN CORPUSCULAR VOLUME 95.8 fL (81-99); MONOCYTES # (AUTO) 0.6 (0.2-0.8); MONOCYTES % 13.3 % (4.4-11.3); NEUTROPHILS # (AUTO) 2.2 (2.1-6.9); NEUTROPHILS % 46.9 % (38.7-80.0); PLATELET COUNT 159 x10e3/uL (140-360); RED BLOOD COUNT 3.83 x10e6/uL (3.6-5.1); RED CELL DISTRIBUTION WIDTH 13.8 % (11.7-14.4); WHITE BLOOD COUNT 4.72 x10e3/uL (4.8-10.8)
[2024-11-20 06:35] LABS: ALBUMIN 3.5 g/dL (3.5-5.0); ALBUMIN/GLOBULIN RATIO 1.2 (0.8-2.0); ANION GAP 12.3 mmol/L (8-16); BILIRUBIN,TOTAL 0.5 mg/dL (0.2-1.2); CALCIUM 9.1 mg/dL (8.4-10.2); CREATININE, SERUM 0.9 mg/dL (0.57-1.11); POTASSIUM 4.3 mmol/L (3.5-5.1); TOTAL PROTEIN 6.5 g/dL (6.5-8.1)
[2024-11-20 06:48] LABS: TROPONIN I 0.032 ng/mL (0-0.300)
[2024-11-20] MEDS: ALBUTEROL/IPRATROPIUM 3 ML NEB NEB PRN (09:11)
[2024-11-20] MEDS: GUAIFENESIN/CODEINE 5 ML LIQD PO PRN (09:14)
[2024-11-20] MEDS: AMLODIPINE BESYLATE 10 MG TAB PO SCH (14:30)
[2024-11-20] MEDS: FUROSEMIDE 40 MG TAB PO SCH (16:08)
[2024-11-20] MEDS: PANTOPRAZOLE SOD 40 MG TABEC PO SCH (16:17)
[2024-11-20] MEDS: LOSARTAN POTASSIUM 25 MG TAB PO SCH (16:18)
[2024-11-20 16:53] LABS: TROPONIN I 0.027 ng/mL (0-0.300)
[2024-11-20] MEDS: ATORVASTATIN 20 MG TAB PO SCH (20:50)
[2024-11-20] MEDS: SUCRALFATE 1 GM TAB PO SCH (20:50)
[2024-11-20] MEDS: GUAIFENESIN 600MG/DEXTROMETHORPHAN 30MG TABSR PO PRN (20:54)
[2024-11-20] MEDS: ACETAMINOPHEN 325 MG TAB PO PRN (22:46)
[2024-11-21] VITALS (10 sets, daily range): BP systolic 112–127; BP diastolic 50–60; PULSE 50–55; RESP 18–21; TEMP 97.6–98.8; O2SAT 96–100
[2024-11-21 06:07] LABS: BASOPHILS % 0.5 % (0.0-1.0); EOSINOPHILS # (AUTO) 0.3 (0.0-0.4); EOSINOPHILS % 8.1 % (0.0-6.0); HEMATOCRIT 38.5 % (34.2-44.1); HEMOGLOBIN 12.7 g/dL (12.0-16.0); LYMPHOCYTES # (AUTO) 1.8 (1.0-3.2); LYMPHOCYTES % 43.3 % (18.0-39.1); MEAN CORPUSCULAR HEMOGLOBIN 30.7 pg (28-32); MONOCYTES # (AUTO) 0.6 (0.2-0.8); MONOCYTES % 13.2 % (4.4-11.3); NEUTROPHILS # (AUTO) 1.5 (2.1-6.9); NEUTROPHILS % 34.9 % (38.7-80.0); PLATELET COUNT 159 x10e3/uL (140-360); RED BLOOD COUNT 4.14 x10e6/uL (3.6-5.1); RED CELL DISTRIBUTION WIDTH 13.8 % (11.7-14.4); WHITE BLOOD COUNT 4.18 x10e3/uL (4.8-10.8)
[2024-11-21 06:32] LABS: ANION GAP 12.9 mmol/L (8-16); CREATININE, SERUM 0.88 mg/dL (0.57-1.11); MAGNESIUM 1.9 MG/DL (1.3-2.1); POTASSIUM 3.9 mmol/L (3.5-5.1)
[2024-11-21 06:54] LABS: THYROID STIMULATING HORMONE 10.694 uIU/mL (0.350-4.940)
[2024-11-21] MEDS: LEVOTHYROXINE SODIUM 88 MCG TAB PO SCH (07:30)
[2024-11-21] MEDS ORDERED: HYDRALAZINE HCL 10 MG TAB PO SCH (09:00)
[2024-11-21] MEDS: FUROSEMIDE INJ 10 MG/ML 2 ML VIAL IV SCH (09:09)
[2024-11-21] MEDS ORDERED: CARBIDOPA-LEVO1 EACH PO (09:19)
[2024-11-21] MEDS ORDERED: MUCINEX DM ER1 EACH PO (10:54)
[2024-11-21] MEDS ORDERED: LEVOTHYROXINE112 MCG PO (10:54)
[2024-11-21] MEDS ORDERED: COREG12.5 MG PO (10:54)
[2024-11-21] MEDS ORDERED: CARVEDILOL12.5 MG PO (10:58)
[2024-11-21] MEDS: MECLIZINE HCL 12.5 MG TAB PO PRN (21:31)
[2024-11-22] VITALS (13 sets, daily range): BP systolic 89–127; BP diastolic 34–86; PULSE 48–60; RESP 18–20; TEMP 97.3–99.1; O2SAT 95–99
[2024-11-23] VITALS (12 sets, daily range): BP systolic 100–145; BP diastolic 38–79; PULSE 53–99; RESP 18–21; TEMP 97.8–98.9; O2SAT 93–99
[2024-11-23] MEDS: LEVOTHYROXINE SODIUM 112 MCG TAB PO SCH (06:00)
[2024-11-23 07:17] LABS: BASOPHILS % 0.5 % (0.0-1.0); EOSINOPHILS # (AUTO) 0.3 (0.0-0.4); EOSINOPHILS % 8.1 % (0.0-6.0); HEMOGLOBIN 12.7 g/dL (12.0-16.0); LYMPHOCYTES # (AUTO) 1.1 (1.0-3.2); LYMPHOCYTES % 26.9 % (18.0-39.1); MEAN CORPUSCULAR HGB CONC 33.4 g/dL (31-35); MEAN CORPUSCULAR VOLUME 92.7 fL (81-99); MONOCYTES # (AUTO) 0.8 (0.2-0.8); NEUTROPHILS # (AUTO) 1.9 (2.1-6.9); NEUTROPHILS % 44.3 % (38.7-80.0); PLATELET COUNT 142 x10e3/uL (140-360); RED CELL DISTRIBUTION WIDTH 13.7 % (11.7-14.4)
[2024-11-23 09:06] LABS: CALCIUM 9.1 mg/dL (8.4-10.2); CREATININE, SERUM 0.85 mg/dL (0.57-1.11)
[2024-11-23] MEDS: ACETAMINOPHEN 325 MG TAB PO PRN (12:27)
[2024-11-23] MEDS ORDERED: LIDOCAINE 4% PATCH TP PRN (14:15)
[2024-11-23] MEDS: CARBIDOPA/LEVODOPA 10/100 TAB PO SCH (14:22)
[2024-11-23] MEDS: SUCRALFATE 1 GM/10 ML SUSP PO SCH (18:45)
[2024-11-24] VITALS (10 sets, daily range): BP systolic 100–120; BP diastolic 53–85; PULSE 60–78; RESP 18–21; TEMP 97.3–101.4; O2SAT 94–99
[2024-11-24 06:30] LABS: BASOPHILS % 0.2 % (0.0-1.0); EOSINOPHILS # (AUTO) 0.3 (0.0-0.4); EOSINOPHILS % 7.7 % (0.0-6.0); HEMATOCRIT 37.8 % (34.2-44.1); HEMOGLOBIN 12.4 g/dL (12.0-16.0); LYMPHOCYTES # (AUTO) 0.8 (1.0-3.2); LYMPHOCYTES % 18.9 % (18.0-39.1); MEAN CORPUSCULAR HEMOGLOBIN 30.7 pg (28-32); MEAN CORPUSCULAR HGB CONC 32.8 g/dL (31-35); MEAN CORPUSCULAR VOLUME 93.6 fL (81-99); MONOCYTES # (AUTO) 0.6 (0.2-0.8); MONOCYTES % 15.7 % (4.4-11.3); NEUTROPHILS # (AUTO) 2.3 (2.1-6.9); NEUTROPHILS % 57.3 % (38.7-80.0); PLATELET COUNT 131 x10e3/uL (140-360); RED BLOOD COUNT 4.04 x10e6/uL (3.6-5.1); RED CELL DISTRIBUTION WIDTH 13.9 % (11.7-14.4); WHITE BLOOD COUNT 4.02 x10e3/uL (4.8-10.8)
[2024-11-24 06:45] LABS: ANION GAP 15.1 mmol/L (8-16); CALCIUM 9.2 mg/dL (8.4-10.2); CREATININE, SERUM 0.88 mg/dL (0.57-1.11); POTASSIUM 4.1 mmol/L (3.5-5.1)
[2024-11-24] MEDS ORDERED: IOPAMIDOL 370 MG/ML 100 ML INFUS..BTL INJ ONE (09:15)
[2024-11-24] MEDS: LIDOCAINE 4% PATCH TP SCH ×2 (13:39→22:12)
[2024-11-24] MEDS: LIDOCAINE 4% PATCH TP ONE (22:13)
[2024-11-25] VITALS (11 sets, daily range): BP systolic 108–126; BP diastolic 44–56; PULSE 56–107; RESP 18–20; TEMP 97.9–98.3; O2SAT 94–100
[2024-11-25] MEDS ORDERED: IOPAMIDOL 370 MG/ML 100 ML INFUS..BTL INJ ONE (06:21)
[2024-11-26] VITALS (12 sets, daily range): BP systolic 107–121; BP diastolic 45–57; PULSE 56–70; RESP 17–19; TEMP 97.1–100; O2SAT 93–100
[2024-11-26] MEDS ORDERED: TROLAMINE SALICYLATE 35.4 GM CR TP PRN (19:45)
[2024-11-27] VITALS (9 sets, daily range): BP systolic 96–129; BP diastolic 48–60; PULSE 53–84; RESP 16–20; TEMP 97.5–98.6; O2SAT 95–100
[2024-11-27 06:21] LABS: ANION GAP 16.1 mmol/L (8-16); CALCIUM 8.3 mg/dL (8.4-10.2); CREATININE, SERUM 0.82 mg/dL (0.57-1.11); POTASSIUM 4.1 mmol/L (3.5-5.1)
[2024-11-27 08:02] LABS: BASOPHILS % 0.3 % (0.0-1.0); EOSINOPHILS # (AUTO) 0.2 (0.0-0.4); EOSINOPHILS % 5.9 % (0.0-6.0); HEMATOCRIT 36.2 % (34.2-44.1); HEMOGLOBIN 12.1 g/dL (12.0-16.0); LYMPHOCYTES % 26.2 % (18.0-39.1); MEAN CORPUSCULAR HEMOGLOBIN 30.6 pg (28-32); MEAN CORPUSCULAR HGB CONC 33.4 g/dL (31-35); MEAN CORPUSCULAR VOLUME 91.6 fL (81-99); MONOCYTES # (AUTO) 0.5 (0.2-0.8); MONOCYTES % 13.9 % (4.4-11.3); NEUTROPHILS # (AUTO) 2.1 (2.1-6.9); NEUTROPHILS % 53.4 % (38.7-80.0); PLATELET COUNT 119 x10e3/uL (140-360); RED BLOOD COUNT 3.95 x10e6/uL (3.6-5.1); RED CELL DISTRIBUTION WIDTH 13.8 % (11.7-14.4); WHITE BLOOD COUNT 3.89 x10e3/uL (4.8-10.8)
[2024-11-27] MEDS: SODIUM CHLORIDE 1 GM TAB PO SCH (11:35)
[2024-11-27] MEDS ORDERED: CEPACOL SORE THROAT LOZENGES PO PRN (12:45)
[2024-11-27] MEDS: CEPACOL SORE THROAT LOZENGES PO PRN (16:12)
[2024-11-27] MEDS: BENZONATATE 100 MG CAP PO PRN (16:12)
[2024-11-28] VITALS: BP 110/56; PULSE 60; RESP 20; TEMP 98.3; O2SAT 95
[2024-11-28 04:00] VITALS: BP 108/56; PULSE 57; RESP 18; TEMP 98.6; O2SAT 99
[2024-11-28 06:04] LABS: ANION GAP 13.7 mmol/L (8-16); CALCIUM 8.4 mg/dL (8.4-10.2); CREATININE, SERUM 0.76 mg/dL (0.57-1.11); POTASSIUM 3.7 mmol/L (3.5-5.1)
[2024-11-28 07:57] VITALS: PULSE 58; RESP 20; O2SAT 94
[2024-11-28 08:23] LABS: BASOPHILS % 0.5 % (0.0-1.0); EOSINOPHILS # (AUTO) 0.3 (0.0-0.4); HEMATOCRIT 37.1 % (34.2-44.1); HEMOGLOBIN 12.4 g/dL (12.0-16.0); LYMPHOCYTES # (AUTO) 1.1 (1.0-3.2); LYMPHOCYTES % 28.7 % (18.0-39.1); MEAN CORPUSCULAR HEMOGLOBIN 30.5 pg (28-32); MEAN CORPUSCULAR HGB CONC 33.4 g/dL (31-35); MEAN CORPUSCULAR VOLUME 91.2 fL (81-99); MONOCYTES # (AUTO) 0.5 (0.2-0.8); MONOCYTES % 12.9 % (4.4-11.3); NEUTROPHILS # (AUTO) 1.9 (2.1-6.9); NEUTROPHILS % 49.6 % (38.7-80.0); PLATELET COUNT 112 x10e3/uL (140-360); RED BLOOD COUNT 4.07 x10e6/uL (3.6-5.1); RED CELL DISTRIBUTION WIDTH 13.6 % (11.7-14.4); WHITE BLOOD COUNT 3.73 x10e3/uL (4.8-10.8)
[2024-11-28] MEDS: FUROSEMIDE 20 MG TAB PO SCH (08:37)
[2024-11-28 08:47] VITALS: BP 98/54; PULSE 55; RESP 20; TEMP 97.9; O2SAT 98
[2024-11-28] MEDS ORDERED: FUROSEMIDE 40 MG TAB PO SCH (09:00)
[2024-11-28 09:13] VITALS: BP 98/54; PULSE 55; RESP 20; TEMP 97.9; O2SAT 98
[2024-11-28 11:53] VITALS: BP 118/93; PULSE 85; RESP 19; TEMP 97.9; O2SAT 97
== END 2024-11-28 16:17 | DRG 308 ==
LOC: ER 16:48 → ERHOLD 19:08 → MED/SURG2 20:25 → OBSVTOIN 11-21 13:53
PROVIDERS: ADMIT Internal Medicine; ATTEND Internal Medicine
DX: I48.20 Chronic atrial fibrillation, unspecified (principal); J69.0 Pneumonitis due to inhalation of food and vomit; I50.32 Chronic diastolic (congestive) heart failure; R00.1 Bradycardia, unspecified; R13.12 Dysphagia, oropharyngeal phase; I11.0 Hypertensive heart disease with heart failure; Z99.81 Dependence on supplemental oxygen; G20.A1 Parkinson's disease without dyskinesia, without mention of fluctuations; J44.9 Chronic obstructive pulmonary disease, unspecified; E03.9 Hypothyroidism, unspecified; K21.9 Gastro-esophageal reflux disease without esophagitis; I25.10 Atherosclerotic heart disease of native coronary artery without angina pectoris; R53.81 Other malaise; E78.5 Hyperlipidemia, unspecified; Z79.890 Hormone replacement therapy; Z98.61 Coronary angioplasty status; Z86.73 Personal history of transient ischemic attack (TIA), and cerebral infarction without residual deficits; Z87.891 Personal history of nicotine dependence
CPT/HCPCS: 36415; 71045; 71260; 74230; 80048; 80053; 82550; 83690; 83735; 83880; 84100; 84439; 84443; 84484; 85025; 87040; 93005; 93306; 94640; 94799; 99284; G0378; J0696; J1610; J1940; J7050; Q9967